=== PATIENT | male | born 1975 | race Caucasian/White ===

== ENCOUNTER 2017-09-26 20:25 | Emergency (ER) | payer SELFPAY ==
[2017-09-26] MEDS ORDERED: Rocephin 1000 MG INJ IM ONE (20:34)
[2017-09-26] MEDS ORDERED: TYLENOL EXTRA STRENGTH 500 MG PO STA (20:34)
[2017-09-26] MEDS ORDERED: MOTRIN 600 MG PO ONE (20:35)
[2017-09-26] MEDS ORDERED: Zofran 4 MG/2 ML VIAL IV ONE (20:47)
[2017-09-26] MEDS ORDERED: Sodium Chloride 0.9% 1000 ML 1,000 ML IV STA ×3 (20:47→22:16)
[2017-09-26] MEDS ORDERED: MORPHINE SULFATE 4 MG INJ IV ONE ×3 (20:47→22:38)
[2017-09-26] MEDS ORDERED: Zofran 4 MG/2 ML VIAL ONE (20:51)
[2017-09-26] MEDS ORDERED: Sodium Chloride 0.9% 1000 ML 1,000 ML ONE ×3 (20:51→22:16)
[2017-09-26] MEDS ORDERED: MORPHINE SULFATE 4 MG INJ ONE ×3 (20:51→22:28)
--- NOTE | 2017-09-26 20:53 | ERPHSYRPT ---
- History of Present Illness Time Seen by Provider: 09/26/17 20:49 Historian: patient, family Exam Limitations: no limitations Patient Subjective Stated Complaint: Upper quadrant abdominal pain bilateral. Denies known injury. Diarrhea Thursday Triage Nursing Assessment: Pt presents to the ED with complaints of upper abdominal pain, bilateral with worsening pain with palpation. Pt states he had diarrhea thursday, no BM yesterday or today. Pt denies other complaints, no distress noted, skin PWD. Physician History: Upper quadrant abdominal pain bilateral. Denies known injury. Diarrhea Thursday complaints of upper abdominal pain, bilateral with worsening pain with palpation. Pt states he had diarrhea since thu, no BM yesterday or today. Pt denies other complaints, Timing/Duration: day(s) (3 days) Activities at Onset: none Quality: cramping Abdominal Pain Onset Location: RUQ, generalized abdomen Pain Radiation: no radiation Severity of Pain-Max: moderate Severity of Pain-Current: moderate Modifying Factors: Improves With: nothing Associated Symptoms: diarrhea, loss of appetite, nausea Previous symptoms: no prior history Allergies/Adverse Reactions: aspirin Allergy (Intermediate, Verified 09/26/17 20:43) Swelling Home Medications: No Reportable Medications [No Reported Medications] 09/26/17 [History] Hx Tetanus, Diphtheria Vaccination/Date Given: Yes Hx Influenza Vaccination/Date Given: No Hx Pneumococcal Vaccination/Date Given: No Immunizations Up to Date: No - Review of Systems Constitutional: No Fever, No Chills Eyes: No Symptoms Ears, Nose, & Throat: No Symptoms Respiratory: No Cough, No Dyspnea Cardiac: No Chest Pain, No Edema, No Syncope Abdominal/Gastrointestinal: Abdominal Pain, Nausea, Diarrhea, No Vomiting Genitourinary Symptoms: No Dysuria Musculoskeletal: No Back Pain, No Neck Pain Skin: No Rash Neurological: No Dizziness, No Focal Weakness, No Sensory Changes Psychological: No Symptoms Endocrine: No Symptoms All Other Systems: Reviewed and Negative - Past Medical History Pertinent Past Medical History: No Neurological History: No Pertinent History ENT History: No Pertinent History Cardiac History: No Pertinent History Respiratory History: No Pertinent History Endocrine Medical History: No Pertinent History Musculoskeletal History: No Pertinent History GI Medical History: No Pertinent History History: No Pertinent History Psycho-Social History: No Pertinent History Male Reproductive Disorders: No Pertinent History - Past Surgical History Past Surgical History: Yes Neuro Surgical History: No Pertinent History Cardiac: No Pertinent History Respiratory: No Pertinent History Gastrointestinal: No Pertinent History Genitourinary: No Pertinent History Musculoskeletal: No Pertinent History Male Surgical History: No Pertinent History Other Surgical History: Hernia repare - Social History Smoking Status: Current every day smoker How long have you smoked: 20 years Exposure to second hand smoke: Yes Patient Lives Alone: No - Nursing Vital Signs Nursing Vital Signs: Initial Vital Signs Temperature 97.6 F 09/26/17 20:34 Pulse Rate 75 09/26/17 20:34 Respiratory Rate 16 09/26/17 20:34 Blood Pressure 111/92 09/26/17 20:34 O2 Sat by Pulse Oximetry 95 09/26/17 20:34 Pain Scale Pain Intensity 7 - Physical Exam General Appearance: no apparent distress, alert Eye Exam: PERRL/EOMI, eyes nml inspection Ears, Nose, Throat Exam: normal ENT inspection, pharynx normal, moist mucous membranes Neck Exam: normal inspection, non-tender, supple, full range of motion Respiratory Exam: normal breath sounds, lungs clear, No respiratory distress Cardiovascular Exam: regular rate/rhythm, normal heart sounds Gastrointestinal/Abdomen Exam: tenderness, distention, guarding, No mass, No ecchymosis, No organomegaly Back Exam: normal inspection, normal range of motion, No CVA tenderness, No vertebral tenderness Extremity Exam: normal inspection, normal range of motion, pelvis stable Neurologic Exam: alert, oriented x 3, cooperative, normal mood/affect, nml cerebellar function, sensation nml, No motor deficits Skin Exam: normal color, warm, dry SpO2: 95 Oxygen Delivery: Room Air - Course Nursing assessment & vital signs reviewed: Yes - CT Exams Abdomen/Pelvis CT Interpretation: Tele-radiologist Report (Large right side morgani hernia) Ordered Tests: Active Orders 24 hr Category Date Time Status Clean Catch Urine Specimen STAT Care 09/26/17 21:34 Active IV Insertion STAT Care 09/26/17 20:46 Active ABDOMEN AND PELVIS W/0 CONTRAS [CT] Stat Exams 09/26/17 20:48 Taken AMYLASE Stat Lab 09/26/17 20:58 Completed CBC W DIFF Stat Lab 09/26/17 20:58 Completed CMP Stat Lab 09/26/17 20:58 Completed LIPASE Stat Lab 09/26/17 20:58 Completed Lactic Acid Stat Lab 09/26/17 21:05 Completed UA W/RFX UR CULTURE Stat Lab 09/26/17 21:58 Completed Medication Summary Generic Name Dose Route Start Last Admin Trade Name Francisco PRN Reason Stop Dose Admin Sodium Chloride 1,000 mls @ 999 mls/hr 09/26/17 21:33 09/26/17 21:38 Sodium Chloride 0.9% 1000 Ml IV 09/26/17 22:33 999 mls/hr .Q1H1M STA Administration Sodium Chloride 1,000 mls @ 999 mls/hr 09/26/17 22:16 09/26/17 22:18 Sodium Chloride 0.9% 1000 Ml IV 09/26/17 23:16 999 mls/hr .Q1H1M STA Administration Discontinued Medications Generic Name Dose Route Start Last Admin Trade Name Francisco PRN Reason Stop Dose Admin Acetaminophen 500 mg 09/26/17 20:34 09/26/17 20:48 Tylenol Extra Strength 500 Mg PO 09/26/17 20:35 Not Given STAT STA Ceftriaxone Sodium 1,000 mg 09/26/17 20:34 09/26/17 20:48 Rocephin 1000 Mg Inj IM 09/26/17 20:35 Not Given STAT ONE Sodium Chloride 1,000 mls @ 999 mls/hr 09/26/17 20:47 09/26/17 20:55 Sodium Chloride 0.9% 1000 Ml IV 09/26/17 21:47 999 mls/hr .Q1H1M STA Administration Sodium Chloride Confirm 09/26/17 20:51 Sodium Chloride 0.9% 1000 Ml Administered 09/26/17 20:52 Dose 1,000 mls @ ud .ROUTE .STK-MED ONE Sodium Chloride Confirm 09/26/17 21:35 Sodium Chloride 0.9% 1000 Ml Administered 09/26/17 21:36 Dose 1,000 mls @ ud .ROUTE .STK-MED ONE Sodium Chloride Confirm 09/26/17 22:16 Sodium Chloride 0.9% 1000 Ml Administered 09/26/17 22:17 Dose 1,000 mls @ ud .ROUTE .STK-MED ONE Ibuprofen 600 mg 09/26/17 20:35 09/26/17 20:47 Motrin 600 Mg PO 09/26/17 20:36 Not Given STAT ONE Morphine Sulfate 4 mg 09/26/17 20:47 09/26/17 20:55 Morphine Sulfate 4 Mg Inj IV 09/26/17 20:48 4 mg STAT ONE Administration Morphine Sulfate Confirm 09/26/17 20:51 Morphine Sulfate 4 Mg Inj Administered 09/26/17 20:52 Dose 4 mg .ROUTE .STK-MED ONE Morphine Sulfate 4 mg 09/26/17 21:33 09/26/17 21:38 Morphine Sulfate 4 Mg Inj IV 09/26/17 21:34 4 mg STAT ONE Administration Morphine Sulfate Confirm 09/26/17 21:35 Morphine Sulfate 4 Mg Inj Administered 09/26/17 21:36 Dose 4 mg .ROUTE .STK-MED ONE Ondansetron HCl 4 mg 09/26/17 20:47 09/26/17 20:55 Zofran 4 Mg/2 Ml Vial IV 09/26/17 20:48 4 mg STAT ONE Administration Ondansetron HCl Confirm 09/26/17 20:51 Zofran 4 Mg/2 Ml Vial Administered 09/26/17 20:52 Dose 4 mg .ROUTE .STK-MED ONE Lab/Rad Data: Laboratory Result Diagrams 09/26/17 20:58 09/26/17 20:58 Laboratory Results 09/26/17 09/26/17 09/26/17 Range/Units 21:58 21:05 20:58 WBC (4.0-10.5) K/mm3 RBC (4.1-5.6) M/mm3 Hgb (12.5-18.0) gm/dl Hct (42-50) % MCV (78-100) fl MCH (26-32) pg MCHC (32-36) g/dl RDW (11.5-14.0) % Plt Count (150-450) K/mm3 MPV (6-9.5) fl Gran % (36.0-66.0) % Eos # (Auto) (0-0.5) Absolute Lymphs (auto) (1.0-4.6) Absolute Monos (auto) (0.0-1.3) Lymphocytes % (24.0-44.0) % Monocytes % (0.0-12.0) % Eosinophils % (0.00-5.0) % Basophils % (0.0-0.4) % Absolute Granulocytes (1.4-6.9) Basophils # (0-0.4) Sodium 139 (137-145) mmol/L Potassium 3.8 (3.5-5.1) mmol/L Chloride 102 (98-107) mmol/L Carbon Dioxide 23 (22-30) mmol/L Anion Gap 17.1 H (5-15) MEQ/L BUN 17 (9-20) mg/dL Creatinine 1.02 (0.66-1.25) mg/dL Estimated GFR > 60 ML/MIN Glucose 120 H (74-106) mg/dL Lactic Acid 1.5 (0.4-2.0) Calcium 9.7 (8.4-10.2) mg/dL Total Bilirubin 0.60 (0.2-1.3) mg/dL AST 22 (17-59) U/L ALT 24 (0-50) U/L Alkaline Phosphatase 69 (38-126) U/L Serum Total Protein 7.3 (6.3-8.2) g/dL Albumin 4.3 (3.5-5.0) g/dL Amylase 54 (30-110) U/L Lipase 46 (23-300) U/L Ur Collection Type VOID Urine Color YELLOW (YELLOW) Urine Appearance CLEAR (CLEAR) Urine pH 5.0 (5-6) Ur Specific [place] 1.015 (1.005-1.025) Urine Protein NEGATIVE (Negative) Urine Ketones NEGATIVE (NEGATIVE) Urine Blood NEGATIVE (0-5) Candido/ul Urine Nitrite NEGATIVE (NEGATIVE) Urine Bilirubin NEGATIVE (NEGATIVE) Urine Urobilinogen NORMAL (0-1) mg/dL Ur Leukocyte Esterase NEGATIVE (NEGATIVE) Urine Culture Reflexed NO (NO) Urine Glucose NEGATIVE (NEGATIVE) mg/dL Specimen Received 09/26/17 2200 09/26/17 Range/Units 20:58 WBC 7.1 (4.0-10.5) K/mm3 RBC 5.22 (4.1-5.6) M/mm3 Hgb 16.5 (12.5-18.0) gm/dl Hct 48.0 (42-50) % MCV 92.0 (78-100) fl MCH 31.6 (26-32) pg MCHC 34.4 (32-36) g/dl RDW 14.4 H (11.5-14.0) % Plt Count 230 (150-450) K/mm3 MPV 9.7 H (6-9.5) fl Gran % 56.0 (36.0-66.0) % Eos # (Auto) 0.30 (0-0.5) Absolute Lymphs (auto) 2.14 (1.0-4.6) Absolute Monos (auto) 0.68 (0.0-1.3) Lymphocytes % 30.1 (24.0-44.0) % Monocytes % 9.6 (0.0-12.0) % Eosinophils % 4.2 (0.00-5.0) % Basophils % 0.1 (0.0-0.4) % Absolute Granulocytes 3.98 (1.4-6.9) Basophils # 0.01 (0-0.4) Sodium (137-145) mmol/L Potassium (3.5-5.1) mmol/L Chloride (98-107) mmol/L Carbon Dioxide (22-30) mmol/L Anion Gap (5-15) MEQ/L BUN (9-20) mg/dL Creatinine (0.66-1.25) mg/dL Estimated GFR ML/MIN Glucose (74-106) mg/dL Lactic Acid (0.4-2.0) Calcium (8.4-10.2) mg/dL Total Bilirubin (0.2-1.3) mg/dL AST (17-59) U/L ALT (0-50) U/L Alkaline Phosphatase (38-126) U/L Serum Total Protein (6.3-8.2) g/dL Albumin (3.5-5.0) g/dL Amylase (30-110) U/L Lipase (23-300) U/L Ur Collection Type Urine Color (YELLOW) Urine Appearance (CLEAR) Urine pH (5-6) Ur Specific [place] (1.005-1.025) Urine Protein (Negative) Urine Ketones (NEGATIVE) Urine Blood (0-5) Candido/ul Urine Nitrite (NEGATIVE) Urine Bilirubin (NEGATIVE) Urine Urobilinogen (0-1) mg/dL Ur Leukocyte Esterase (NEGATIVE) Urine Culture Reflexed (NO) Urine Glucose (NEGATIVE) mg/dL Specimen Received - Progress Progress: unchanged, pain not gone completely Discussed with : Other (Trauma surgeon business analysis consultant at [facility], will see patient in ER) Counseled pt/family regarding: lab results, diagnosis, need for follow-up, rad results - Departure Time of Disposition: 22:23 Departure Disposition: Transfer ([facility] ER) Clinical Impression: Morgagni hernia Condition: Stable Critical Care Time: Yes Critical Care Time(excluding separately billable procedures): 30-74 minutes Referrals: DOCTOR,NO FAMILY [Primary Care Provider] -
[2017-09-26 21:02] LABS: BASOPHIL % 0.1 % (0.0-0.4); Basophil (Absolute #) 0.01 (0-0.4); Eosinophil % 4.2 % (0.00-5.0); Granulocyte Absolute (ANC) 3.98 (1.4-6.9); Hemoglobin 16.5 gm/dl (12.5-18.0); Lymphocyte (Absolute #) 2.14 (1.0-4.6); Lymphocytes % 30.1 % (24.0-44.0); Mean Corpuscular Hemoglobin 31.6 pg (26-32); Mean Corpuscular Hgb Concent. 34.4 g/dl (32-36); Mean Platelet Volume 9.7 fl (6-9.5); Monocyte (Absolute #) 0.68 (0.0-1.3); Monocytes % 9.6 % (0.0-12.0); Platelet Count 230 K/mm3 (150-450); Red Blood Count 5.22 M/mm3 (4.1-5.6); Red Cell Distribution Width 14.4 % (11.5-14.0); White Blood Count 7.1 K/mm3 (4.0-10.5)
[2017-09-26 21:19] LABS: ALBUMIN 4.3 g/dL (3.5-5.0); ALKALINE PHOSPHATASE 69 U/L (38-126); AMYLASE 54 U/L (30-110); ANION GAP 17.1 MEQ/L (5-15); BLOOD UREA NITROGEN 17 mg/dL (9-20); CHLORIDE 102 mmol/L (98-107); Calcium 9.7 mg/dL (8.4-10.2); Carbon Dioxide 23 mmol/L (22-30); Creatinine 1 1.02 mg/dL (0.66-1.25); Glucose 120 mg/dL (74-106); LIPASE 46 U/L (23-300); Potassium 3.8 mmol/L (3.5-5.1); SGOT/AST 22 U/L (17-59); SGPT/ALT 24 U/L (0-50); SODIUM 139 mmol/L (137-145); Total Protein 7.3 g/dL (6.3-8.2)
[2017-09-26 22:02] LABS: Appearance CLEAR (CLEAR); Bilirubin NEGATIVE (NEGATIVE); Blood NEGATIVE Ery/ul (0-5); Glucose NEGATIVE (NEGATIVE); Ketones NEGATIVE (NEGATIVE); Leukocyte Esterase NEGATIVE (NEGATIVE); Nitrite NEGATIVE (NEGATIVE); Protein,Urine Dip NEGATIVE (Negative); Specific Gravity 1.015 (1.005-1.025); Urobilinogen NORMAL mg/dL (0-1)
[2017-09-26 22:56] VITALS: BP 121/78; PULSE 72; O2SAT 92
--- NOTE | 2017-09-27 08:10 | XRAY ---
Indication: Bilateral upper abdomen pain 3 days. Diarrhea. Multiple contiguous axial images obtained through the abdomen and pelvis without contrast as ordered. Comparison: None Lung bases demonstrates a large right anterior diaphragmatic defect with large herniated right hemicolon, small bowel loops, and omental fat favoring Morgagni hernia. Secondary right lower lobe compressive atelectasis. Several right lung base calcified granulomas. Left lung base clear. Heart is not enlarged. Noncontrasted stomach and bowel loops appear nonobstructed. Several small bowel loops however are mildly fluid distended with synchronous fluid leveling, ileus versus enteritis. No free fluid/air. Remaining liver, gallbladder, pancreas, spleen, adrenal glands, kidneys, ureters, and bladder appear unremarkable for noncontrasted exam. Enlarged/nodular prostate gland impresses on the base of the bladder. Minimal aortoiliac calcifications without AAA. Osseous structures intact with mild degenerative changes throughout the spine. Impression: 1. Morgagni hernia with herniated right hemicolon, small bowel, and omental fat with right lower lobe compressive atelectasis. 2. Several fluid-filled small bowel loops with synchronous fluid leveling, ileus versus enteritis. 3. Enlarged/nodular prostate gland. Comment: Preliminary interpretation was made by [facility]. No critical discrepancy. CTDI 23.63
== END 2017-09-26 23:05 | disposition short-term general hospital (02) ==
LOC: ED 20:25
DX: K46.9 Unspecified abdominal hernia without obstruction or gangrene (principal); R19.7 Diarrhea, unspecified
CPT/HCPCS: 36000; 36415; 74176; 80053; 81002; 82150; 83605; 83690; 85025; 96360; 96361; 96374; 96375; 96376; 99285; J2270; J2405

== ENCOUNTER 2018-10-11 17:00 | Emergency (ER) | payer OTHER ==
--- NOTE | 2018-10-11 17:34 | ERPHSYRPT ---
- History of Present Illness Time Seen by Provider: 10/11/18 17:23 Source: patient Exam Limitations: no limitations Patient Subjective Stated Complaint: Pt states "I was riding a horse yesterday and he reared up and my foot got caught in the stirrup and that was the last thing I remember. I thought I would be ok, but now my had feels like someone is squeezing it." Triage Nursing Assessment: Pt alert and oriented x 3, skin pwd. Pt has abrasion noted to left shoulder, pain in left wrist, left eye is black, ambualtes with an upright steady gait, able to speak in clear full sentences. PT in no apparent respiratory distress. Physician History: 43-year-old white male arrives with complaint of pain in his head pain in his neck pain in his left wrist since yesterday. Patient states he fell while on her horse he got his leg caught in a stirrup he can't remember anything else days complaining of pain in his head pain in his neck pain in his left wrist. He has ecchymosis in the left medial periorbital area. He did have some abrasions to his shoulder he denies significant shoulder pain back pain abdominal pain hip pain or leg pain. Past medical history is negative. Past surgical history includes hernia repair, cholecystectomy. Timing/Duration: yesterday Severity: moderate Modifying Factors: Worsens With: eating, immobilization, medication, rest, acetaminophen, ibuprofen, nothing Associated Symptoms: headaches, other (head pain, neck pain, left wrist pain), No nausea, No vomiting, No abdominal pain, No shortness of breath, No heartburn , No diaphoresis, No cough, No chills, No chest pain, No fever, No loss of appetite, No malaise, No rash, No syncope, No seizure, No weakness Allergies/Adverse Reactions: aspirin Allergy (Intermediate, Verified 09/26/17 20:43) Swelling Hx Tetanus, Diphtheria Vaccination/Date Given: Yes Hx Influenza Vaccination/Date Given: No Hx Pneumococcal Vaccination/Date Given: No Immunizations Up to Date: Yes - Review of Systems Constitutional: No Fever, No Chills Eyes: No Symptoms, Other (ecchymosis left medial periorbital area), No Eye Pain , No Eye Redness, No Itchy, No Photophobia, No Tearing, No Vision Changes, No Double Vision Ears, Nose, & Throat: No Symptoms, No Ear Pain, No Ear Discharge, No Hearing Changes, No Tinnitus, No Nose Pain, No Nose Congestion, No Nose Discharge, No Sinus Drainage, No Epistaxis, No Mouth Pain, No Mouth Swelling, No Loose Teeth, No Throat Pain, No Throat Swelling, No Hoarse, No Painful Swallowing, No Snoring , No Stridor Respiratory: No Cough, No Dyspnea Cardiac: No Chest Pain, No Edema, No Syncope Abdominal/Gastrointestinal: No Abdominal Pain, No Nausea, No Vomiting, No Diarrhea Genitourinary Symptoms: No Dysuria Musculoskeletal: Neck Pain, Fall, Injury (fell from horse yesterday), Other ( left wrist pain), No Back Pain, No Deformity Skin: No Symptoms Neurological: Headache, Other (loss of consciousness yesterday), No Dizziness, No Focal Weakness, No Gait Changes, No Irritability, No Lethargy, No Paralysis, No Parasthesia, No Seizure, No Sensory Changes, No Speech Changes, No Tics, No Tremors, No Vertigo Psychological: No Symptoms Endocrine: No Symptoms All Other Systems: Reviewed and Negative - Past Medical History Pertinent Past Medical History: No Neurological History: No Pertinent History ENT History: No Pertinent History Cardiac History: No Pertinent History Respiratory History: No Pertinent History Endocrine Medical History: No Pertinent History Musculoskeletal History: No Pertinent History GI Medical History: No Pertinent History History: No Pertinent History Psycho-Social History: No Pertinent History Male Reproductive Disorders: No Pertinent History - Past Surgical History Past Surgical History: Yes Neuro Surgical History: No Pertinent History Cardiac: No Pertinent History Respiratory: No Pertinent History Gastrointestinal: No Pertinent History Genitourinary: No Pertinent History Musculoskeletal: No Pertinent History Male Surgical History: No Pertinent History Other Surgical History: Hernia repare. sara - Social History Smoking Status: Current every day smoker How long have you smoked: years Exposure to second hand smoke: Yes Drug Use: none Patient Lives Alone: Yes - Nursing Vital Signs Nursing Vital Signs: Initial Vital Signs Temperature 97.6 F 10/11/18 17:08 Pulse Rate 95 H 10/11/18 17:08 Respiratory Rate 20 10/11/18 17:08 Blood Pressure 135/98 10/11/18 17:08 O2 Sat by Pulse Oximetry 100 10/11/18 17:08 Pain Scale Pain Intensity 0 - Physical Exam General Appearance: mild distress, alert Eye Exam: PERRL/EOMI, other (Fundi are unremarkable ecchymosis left medial periorbital area) Ears, Nose, Throat Exam: normal ENT inspection, TMs normal, pharynx normal, moist mucous membranes Neck Exam: normal inspection, supple, No non-tender, No meningismus, No mass, No Brudzinski, No Kernig's, No carotid bruit, No JVD, No limited range of motion , No lymphadenopathy, No subcutaneous emphysema, No midline tenderness, No thyromegaly Respiratory Exam: normal breath sounds, lungs clear, No respiratory distress Cardiovascular Exam: regular rate/rhythm, normal heart sounds, normal peripheral pulses, capillary refill <2 sec Gastrointestinal/Abdomen Exam: soft, normal bowel sounds, No tenderness, No mass Back Exam: normal inspection, normal range of motion, No CVA tenderness, No vertebral tenderness Extremity Exam: normal range of motion, pelvis stable, other (left wrist tenderness with movement and palpation), No normal inspection Neurologic Exam: alert, oriented x 3, cooperative, cardiology physician II-XII nml as tested, normal mood/affect, nml cerebellar function, nml station & gait, sensation nml, No motor deficits Skin Exam: normal color, warm, dry, other (Ecchymosis left medial periorbital area), No rash SpO2 Interpretation: normal (100%) SpO2: 100 - Course Nursing assessment & vital signs reviewed: Yes - CT Exams Cervical Spine CT Interpretation: Discussed w/radiologist (CT C-spine: Impression: No comparisons. Lordotic straightening and minimal C6-7 DDD. Negative fracture or subluxation.) Head CT Interpretation: Discussed w/radiologist (CT head: No comparison. 7 mm right temporal lobe cortical acute parenchymal bleed/contusion without mass effect or fracture. Mild bilateral frontal and ethmoid sinus disease.) Ordered Tests: Active Orders 24 hr Category Date Time Status Door Liner Helper STAT Care 10/11/18 18:47 Active IV Insertion STAT Care 10/11/18 18:45 Active Pulse Oximetry (ED) STAT Care 10/11/18 18:47 Active Splint STAT Care 10/11/18 18:49 Active CERVICAL SPINE WO CONTRAST [CT] Stat Exams 10/11/18 17:51 Taken HEAD WITHOUT CONTRAST [CT] Stat Exams 10/11/18 17:50 Taken WRIST (MIN 3 VIEWS) Stat Exams 10/11/18 17:29 Taken CBC W DIFF Stat Lab 10/11/18 19:00 Completed CMP Stat Lab 10/11/18 19:00 Completed PROTIME WITH INR Stat Lab 10/11/18 19:00 Completed PTT Stat Lab 10/11/18 19:00 Completed Medication Summary Generic Name Dose Route Start Last Admin Trade Name Francisco PRN Reason Stop Dose Admin Sodium Chloride 1,000 mls @ 50 mls/hr 10/11/18 18:45 10/11/18 19:11 Sodium Chloride 0.9% 1000 Ml IV 11/10/18 18:44 50 mls/hr .Q20H FRANK Administration Lab/Rad Data: Laboratory Result Diagrams 10/11/18 19:00 10/11/18 19:00 Laboratory Results 10/11/18 10/11/18 10/11/18 Range/Units 19:00 19:00 19:00 WBC (4.0-10.5) K/mm3 RBC (4.1-5.6) M/mm3 Hgb (12.5-18.0) gm/dl Hct (42-50) % MCV (78-100) fl MCH (26-32) pg MCHC (32-36) g/dl RDW (11.5-14.0) % Plt Count (150-450) K/mm3 MPV (6-9.5) fl Gran % (36.0-66.0) % Eos # (Auto) (0-0.5) Absolute Lymphs (auto) (1.0-4.6) Absolute Monos (auto) (0.0-1.3) Lymphocytes % (24.0-44.0) % Monocytes % (0.0-12.0) % Eosinophils % (0.00-5.0) % Basophils % (0.0-0.4) % Absolute Granulocytes (1.4-6.9) Basophils # (0-0.4) PT 12.5 (8.83-12.87) SECONDS INR 1.07 (0.8-3.0) APTT 28.4 (24.1-36.1) SECONDS Sodium 137 (137-145) mmol/L Potassium 4.2 (3.5-5.1) mmol/L Chloride 105 (98-107) mmol/L Carbon Dioxide 25 (22-30) mmol/L Anion Gap 12.0 (5-15) MEQ/L BUN 20 (9-20) mg/dL Creatinine 1.19 (0.66-1.25) mg/dL Estimated GFR > 60.0 ML/MIN Glucose 104 (74-106) mg/dL Calcium 9.5 (8.4-10.2) mg/dL Total Bilirubin 0.30 (0.2-1.3) mg/dL AST 20 (17-59) U/L ALT 21 (0-50) U/L Alkaline Phosphatase 78 (38-126) U/L Serum Total Protein 7.7 (6.3-8.2) g/dL Albumin 4.2 (3.5-5.0) g/dL 10/11/18 Range/Units 19:00 WBC 8.7 (4.0-10.5) K/mm3 RBC 4.90 (4.1-5.6) M/mm3 Hgb 15.6 (12.5-18.0) gm/dl Hct 46.4 (42-50) % MCV 94.7 (78-100) fl MCH 31.8 (26-32) pg MCHC 33.6 (32-36) g/dl RDW 14.6 H (11.5-14.0) % Plt Count 216 (150-450) K/mm3 MPV 9.8 H (6-9.5) fl Gran % 65.6 (36.0-66.0) % Eos # (Auto) 0.29 (0-0.5) Absolute Lymphs (auto) 1.97 (1.0-4.6) Absolute Monos (auto) 0.72 (0.0-1.3) Lymphocytes % 22.6 L (24.0-44.0) % Monocytes % 8.3 (0.0-12.0) % Eosinophils % 3.3 (0.00-5.0) % Basophils % 0.2 (0.0-0.4) % Absolute Granulocytes 5.71 (1.4-6.9) Basophils # 0.02 (0-0.4) PT (8.83-12.87) SECONDS INR (0.8-3.0) APTT (24.1-36.1) SECONDS Sodium (137-145) mmol/L Potassium (3.5-5.1) mmol/L Chloride (98-107) mmol/L Carbon Dioxide (22-30) mmol/L Anion Gap (5-15) MEQ/L BUN (9-20) mg/dL Creatinine (0.66-1.25) mg/dL Estimated GFR ML/MIN Glucose (74-106) mg/dL Calcium (8.4-10.2) mg/dL Total Bilirubin (0.2-1.3) mg/dL AST (17-59) U/L ALT (0-50) U/L Alkaline Phosphatase (38-126) U/L Serum Total Protein (6.3-8.2) g/dL Albumin (3.5-5.0) g/dL - Progress Progress: improved Progress Note: 10/11/18 18:57 43-year-old white male arrives with complaint of pain in the right side of his head pain in his neck pain in his left hand symptoms since yesterday. 'Patient states he was riding a horse yesterday he got hung up on a stirrup and fell he cannot remember anything else he has the above complaints. He denies any neck pain he did have some abrasions to his shoulder but states he is really not having any shoulder pain. Vitals are stable. He is tender with palpation and movement of the left wrist he has some ecchymosis in the left medial periorbital area. Ears TMs are reilly and intact bilaterally eyes PERRLA EOMI nose is clear throat is clear neck tender posteriorly lungs are clear heart is regular abdomen soft nontender nondistended positive bowel sounds. Extremities tenderness of the left wrist with palpation and movement radial and ulnar pulses are intact 2 over 4. Neuro cranial nerves II through XII are intact DTRs symmetrical 2 over 4 Semaj Coma Scale is 15. Patient's CT of the C-spine no comparison, lordotic straightening and minimal C6 -7 degenerative disc disease negative fracture/subluxation patient's CT had colon no comparisons 7 mm right temporal lobe cortical acute parenchymal bleed/ contusion without mass effect or fracture. Mild bilateral frontal and ethmoid sinus disease. X-ray left wrist no fracture no subluxation Impression accidental fall, neck pain, intercranial bleed, head contusion. Plan I will have nurses go ahead and place IV on the patient 50 mL per hour will give patient [place] for pain. I have discussed case with Dr. Dennis she has excepted the patient to [facility]. CBC CMP PT PTT have been ordered 10/11/18 20:07 I had planned to transfer the patient to [facility] however the patient' s brother apparently flies for [facility]. He requested that the patient be transferred to [facility] and did not want the patient to go to [facility]. I contacted Dr. Yaneth Hernandez at [facility] and discussed patient's case with him. He felt that the patient had fallen approximately 24 hours he had a very small bleed which nothing would be done about it at this time he felt that the patient would have already been released by now had he been admitted yesterday he felt like the patient did not warrant admission and recommended the patient be discharged. Will go ahead and discharge patient I've discussed this with the patient he is happy with this. Will write for [place] for pain for this patient he is return home rest he is avoid aspirin products (he is allergic to them anyway) He is to follow-up with his family doctor. - Departure Departure Disposition: Home Clinical Impression: Animal-rider injured by fall from or being thrown from horse in noncollision accident, subsequent encounter, Intracranial bleed, Neck pain Accidental fall Qualifiers: Encounter type: initial encounter Qualified Code(s): W19.XXXA - Unspecified fall, initial encounter Head contusion Qualifiers: Encounter type: initial encounter Contusion of head detail: unspecified part of head Qualified Code(s): S00.93XA - Contusion of unspecified part of head, initial encounter Sprain of left wrist Qualifiers: Encounter type: initial encounter Qualified Code(s): S63.502A - Unspecified sprain of left wrist, initial encounter Condition: Fair Critical Care Time: No Referrals: DOCTOR,NO FAMILY [Primary Care Provider] - Instructions: Closed Head Injury (DC) Additional Instructions: Return home Cold packs to contused area 24-48 hours. [place] as prescribed. Follow-up with your family doctor. Ice and elevate left wrist 24-48 hours. Return for acute distress or for severe symptoms. Prescriptions: Hydrocodone/APAP 5-325 Tab^^^ [[place] 5-325 Tablet^^^] 1 tab PO Q6HPRN PRN #10 tablet MDD 6 PRN Reason: Pain
[2018-10-11] MEDS ORDERED: Sodium Chloride 0.9% 1000 ML 1,000 ML IV SCH (18:45)
[2018-10-11] MEDS ORDERED: Sodium Chloride 0.9% 1000 ML 1,000 ML ONE (19:06)
[2018-10-11 19:13] LABS: BASOPHIL % 0.2 % (0.0-0.4); Basophil (Absolute #) 0.02 (0-0.4); Eosinophil % 3.3 % (0.00-5.0); Eosinophil (Absolute #) 0.29 (0-0.5); Granulocyte Absolute (ANC) 5.71 (1.4-6.9); Granulocytes % 65.6 % (36.0-66.0); Hematocrit 46.4 % (42-50); Hemoglobin 15.6 gm/dl (12.5-18.0); Lymphocyte (Absolute #) 1.97 (1.0-4.6); Lymphocytes % 22.6 % (24.0-44.0); Mean Cell Volume 94.7 fl (78-100); Mean Corpuscular Hemoglobin 31.8 pg (26-32); Mean Corpuscular Hgb Concent. 33.6 g/dl (32-36); Mean Platelet Volume 9.8 fl (6-9.5); Monocyte (Absolute #) 0.72 (0.0-1.3); Monocytes % 8.3 % (0.0-12.0); Platelet Count 216 K/mm3 (150-450); Red Cell Distribution Width 14.6 % (11.5-14.0); White Blood Count 8.7 K/mm3 (4.0-10.5)
[2018-10-11 19:20] LABS: INR 1.07 (0.8-3.0); PROTIME 12.5 SECONDS (8.83-12.87)
[2018-10-11 19:25] LABS: ALBUMIN 4.2 g/dL (3.5-5.0); ALKALINE PHOSPHATASE 78 U/L (38-126); BLOOD UREA NITROGEN 20 mg/dL (9-20); CHLORIDE 105 mmol/L (98-107); Calcium 9.5 mg/dL (8.4-10.2); Carbon Dioxide 25 mmol/L (22-30); Creatinine 1 1.19 mg/dL (0.66-1.25); Glucose 104 mg/dL (74-106); Potassium 4.2 mmol/L (3.5-5.1); SGOT/AST 20 U/L (17-59); SGPT/ALT 21 U/L (0-50); SODIUM 137 mmol/L (137-145); Total Protein 7.7 g/dL (6.3-8.2)
[2018-10-11] MEDS ORDERED: NORCO 5/325 MG PO ONE (20:15)
[2018-10-11] MEDS ORDERED: NORCO 5/325 MG ONE (20:29)
[2018-10-11 21:04] VITALS: BP 125/92; PULSE 76; O2SAT 97
--- NOTE | 2018-10-12 08:37 | XRAY ---
Indication: Head and neck pain following fall off horse one day earlier. Multiple contiguous axial images obtained through the head without contrast. Comparison: None Right temporal lobe demonstrates a small 7 mm cortical acute parenchymal hemorrhage/contusion without mass effect. No other acute hemorrhage, abnormal extra-axial fluid collection, or mass effect. Fourth ventricle is midline without hydrocephalus. Palmer-white matter differentiation is preserved. Bony calvarium intact. Mild mucosal thickening of both ethmoid and both frontal sinuses. Mastoid air cells are clear. Impression: 1. Tiny cortical acute parenchymal hemorrhage/contusion involving the right temporal lobe without mass effect or fracture. 2. Incidental paranasal sinus disease. CT DI 50.87
--- NOTE | 2018-10-12 08:39 | XRAY ---
Indication: Head and neck pain following fall off horse one day earlier. Multiple contiguous axial images obtained through the cervical spine. Sagittal and coronal reformatted images obtained. Comparison: None Axial images negative for acute fracture, suspicious bony lesions, or spinal canal stenosis. Minimal C6-C7 degenerative endplate spurring. Sagittal and coronal reformatted images demonstrates lordotic straining, positional versus paraspinal spasm. Minimal C6-C7 disc space narrowing. No acute compression fracture, subluxation, or jumped facets. Normal appearing craniocervical junction. Visualized noncontrasted soft tissues including lung apices unremarkable. Impression: 1. Negative for acute fracture/subluxation. Cervical lordotic straightening, positional versus paraspinal spasm. 2. Incidental C6-C7 degenerative changes. CT DI 58.30
--- NOTE | 2018-10-12 09:22 | XRAY ---
Indication: Pain following fall off horse. Comparison: None 3 views of the left wrist obtained. No bony, articular, or soft tissue abnormalities.
== END 2018-10-11 21:07 | disposition home or self-care (01) ==
LOC: ED 17:00
DX: S00.93XA Contusion of unspecified part of head, initial encounter (principal); S63.502A Unspecified sprain of left wrist, initial encounter; R51 Headache; M54.2 Cervicalgia; M25.532 Pain in left wrist; S40.212A Abrasion of left shoulder, initial encounter; S00.12XA Contusion of left eyelid and periocular area, initial encounter; R58 Hemorrhage, not elsewhere classified; V80.919A Animal-rider injured in unspecified transport accident, initial encounter
CPT/HCPCS: 36000; 36415; 70450; 72125; 73110; 80053; 85025; 85610; 85730; 93041; 96360; 96361; 99285; L3908; A9270-GY

== ENCOUNTER 2022-11-13 12:05 | Emergency (ER) | payer MEDICAID, OTHER ==
[2022-11-13 13:11] VITALS: PULSE 91
[2022-11-13 13:12] LABS: Absolute Neutrophil Ct (ANC) 5.29 x10^3/uL (1.4-6.9); BASOPHIL % 0.4 % (0.0-0.4); Basophil (Absolute #) 0.03 x10^3/uL (0-0.4); Eosinophil % 1.9 % (0.00-5.0); Eosinophil (Absolute #) 0.13 x10^3/uL (0-0.5); Hematocrit 47.5 % (42-50); Hemoglobin 15.8 g/dL (12.5-18.0); IMMATURE GRAN # 0.02 x10^3u/L (0.00-0.03); IMMATURE GRAN % 0.3 % (0.00-0.4); Lymphocyte (Absolute #) 1.02 x10^3/uL (1.0-4.6); Mean Cell Volume 95.4 fL (78-100); Mean Corpuscular Hemoglobin 31.7 pg (26-32); Mean Corpuscular Hgb Concent. 33.3 g/dL (32-36); Mean Platelet Volume 9.7 fL (7.5-11.0); Monocytes % 4.4 % (0.0-12.0); Platelet Count 152 x10^3/uL (150-450); Red Blood Count 4.98 x10^6/uL (4.1-5.6); Red Cell Distribution Width 13.9 % (11.5-14.0); White Blood Count 6.8 x10^3/uL (4.0-10.5)
[2022-11-13 13:23] LABS: ALBUMIN 4.4 g/dL (3.5-5.0); BILIRUBIN,TOTAL 0.7 mg/dL (0.2-1.3); Calcium 8.7 mg/dL (8.4-10.2); Creatinine 1 1.36 mg/dL (0.66-1.25); Potassium 3.9 mmol/L (3.5-5.1); Total Protein 8.3 g/dL (6.3-8.2)
--- NOTE | 2022-11-13 13:48 | XRAY ---
Indication: Pain and swelling. Two-dimensional sonogram and color Doppler imaging of the major venous vessels of the left leg performed. Comparison: None No thrombus seen in the examined deep venous vessels of the left leg including greater saphenous vein. Veins demonstrate normal compressibility. Venous waveforms are normal with and without augmentation. Impression: Left leg negative for DVT.
[2022-11-13 14:13] VITALS: O2SAT 95
[2022-11-13] MEDS ORDERED: CLINDAMYCIN-D5W 900 MG/50 ML*** 900 MG/50 ML BAG IV STA (14:25)
[2022-11-13] MEDS ORDERED: CLINDAMYCIN-D5W 900 MG/50 ML*** 900 MG/50 ML BAG IV ONE (14:43)
--- NOTE | 2022-11-13 15:24 | ERPHSYRPT ---
- History of Present Illness Time Seen by Provider: 11/13/22 12:25 Source: patient Exam Limitations: no limitations Patient Subjective Stated Complaint: " My leg has been hurting, red, and swollen since Thursday. It's getting worse and not feeling any better". Triage Nursing Assessment: Pt presents to ER with complaints of tenderness, redness, and swelling to left lower leg and left groin. Pt states appeared about 2 days ago. Appears infected. Pt is alert and oriented x 3. Respirations are unlabored. Pt ambulates with shuffle gait. Pt denies any fever, nausea, vomiting, or diarrhea. Pt has no further complaints other than pain in leg. Rates pain 8/10 scale. Physician History: 47 years old male presented to ER with chief complaint of left lower leg swelling and pain for the last 2 to 3 days with progressive worsening and shooting to the groin area with some redness in the groin area as well since yesterday. Moderate intensity sharp burning pain with no fever or chills. Denies any fall or trauma or insect bite. Timing/Duration: day(s) (3), constant, gradual onset, worse Quality: burning, painful Severity: moderate Location: extremities Possible Causes: no cause identified Associated Symptoms: rash, swelling/mass/lumps Allergies/Adverse Reactions: aspirin Allergy (Intermediate, Verified 11/13/22 12:35) Swelling Hx Tetanus, Diphtheria Vaccination/Date Given: Yes Hx Influenza Vaccination/Date Given: No Hx Pneumococcal Vaccination/Date Given: No Immunizations Up to Date: No Travel Risk - International Travel Have you traveled outside of the country in past 3 weeks: No - Coronavirus Screening Are you exhibiting any of the following symptoms?: No Close contact with a COVID-19 positive Pt in past 14-21 Days: No - Vaccine Status Have you recieved a Covid-19 vaccination: No - Review of Systems Constitutional: No Symptoms Ears, Nose, & Throat: No Symptoms Respiratory: No Symptoms Cardiac: No Symptoms Abdominal/Gastrointestinal: No Symptoms Musculoskeletal: No Symptoms Skin: Rash Neurological: No Symptoms Endocrine: No Symptoms Hematologic/Lymphatic: No Symptoms - Past Medical History Pertinent Past Medical History: No Neurological History: No Pertinent History ENT History: No Pertinent History Cardiac History: No Pertinent History Respiratory History: No Pertinent History Endocrine Medical History: No Pertinent History Musculoskeletal History: No Pertinent History GI Medical History: No Pertinent History History: No Pertinent History Psycho-Social History: No Pertinent History Male Reproductive Disorders: No Pertinent History - Past Surgical History Past Surgical History: Yes Neuro Surgical History: No Pertinent History Cardiac: No Pertinent History Respiratory: No Pertinent History Gastrointestinal: No Pertinent History Genitourinary: No Pertinent History Musculoskeletal: No Pertinent History Male Surgical History: No Pertinent History Other Surgical History: Hernia repare. sara - Social History Smoking Status: Current every day smoker How long have you smoked: years Exposure to second hand smoke: Yes Drug Use: none Patient Lives Alone: No - Nursing Vital Signs Nursing Vital Signs: Initial Vital Signs Blood Pressure 153/101 11/13/22 12:28 O2 Sat by Pulse Oximetry 94 L 11/13/22 12:28 Pain Scale Pain Intensity 6 - Physical Exam General Appearance: no apparent distress, alert Eye Exam: PERRL/EOMI Ears, Nose, Throat Exam: normal ENT inspection Neck Exam: normal inspection, full range of motion Respiratory Exam: normal breath sounds, lungs clear Cardiovascular Exam: regular rate/rhythm, normal heart sounds Gastrointestinal/Abdomen Exam: soft, normal bowel sounds, No tenderness Back Exam: normal inspection, normal range of motion Extremity Exam: inflammation, swelling (Left lower medial leg 6 x 7 cm area of erythema with mild swelling, warm, minimal tenderness to touch with streaking going towards knee and some erythema in the left groin. No calf tenderness.), tenderness, No calf tenderness Neurologic Exam: alert, oriented x 3, cooperative Skin Exam: normal color Lymphatic Exam: inguinal node tender (L) SpO2 Interpretation: normal SpO2: 95 O2 Delivery: Room Air Ordered Tests: Active Orders 24 hr Category Date Time Status VENOUS UNILAT/LIMITED EXTREMIT [US] Stat Exams 11/13/22 13:00 Completed BLOOD CULTURE Stat Lab 11/13/22 13:02 Received CBC W DIFF Stat Lab 11/13/22 12:45 Completed CMP Stat Lab 11/13/22 12:56 Completed Lactic Acid Stat Lab 11/13/22 12:55 Completed PROCALCITONIN Stat Lab 11/13/22 12:56 Completed UA W/RFX UR CULTURE Stat Lab 11/13/22 14:50 Ordered Medication Summary Discontinued Medications Generic Name Dose Route Start Last Admin Trade Name Freq PRN Reason Stop Dose Admin Clindamycin HCl/Dextrose 900 mg in 50 mls @ 100 mls/hr 11/13/22 14:25 11/13/22 14:45 Clindamycin-D5w 900 Mg/50 Ml IV 11/13/22 14:54 100 ml/hr STAT STA 100 mls/hr Administration Clindamycin HCl/Dextrose Confirm 11/13/22 14:43 Clindamycin-D5w 900 Mg/50 Ml Administered 11/13/22 14:44 Dose 900 mg in 50 mls @ ud IV .K-MED ONE Lab/Rad Data: Laboratory Result Diagrams 11/13/22 12:45 11/13/22 12:56 Laboratory Results 11/13/22 11/13/22 11/13/22 Range/Units 12:56 12:56 12:55 WBC (4.0-10.5) x10^3/uL RBC (4.1-5.6) x10^6/uL Hgb (12.5-18.0) g/dL Hct (42-50) % MCV (78-100) fL MCH (26-32) pg MCHC (32-36) g/dL RDW (11.5-14.0) % Plt Count (150-450) x10^3/uL MPV (7.5-11.0) fL Gran % (36.0-66.0) % Immature Gran % (Auto) (0.00-0.4) % Nucleat RBC Rel Count (0.00-0.1) % Eos # (Auto) (0-0.5) x10^3/uL Immature Gran # (Auto) (0.00-0.03) x10^3u/L Absolute Lymphs (auto) (1.0-4.6) x10^3/uL Absolute Monos (auto) (0.0-1.3) x10^3/uL Absolute Nucleated RBC (0.00-0.01) x10^3u/L Lymphocytes % (24.0-44.0) % Monocytes % (0.0-12.0) % Eosinophils % (0.00-5.0) % Basophils % (0.0-0.4) % Absolute Granulocytes (1.4-6.9) x10^3/uL Basophils # (0-0.4) x10^3/uL Sodium 136 L (137-145) mmol/L Potassium 3.9 (3.5-5.1) mmol/L Chloride 102 (98-107) mmol/L Carbon Dioxide 22 (22-30) mmol/L Anion Gap 15.0 (5-15) MEQ/L BUN 18 (9-20) mg/dL Creatinine 1.36 H (0.66-1.25) mg/dL Estimated GFR 60.0 ML/MIN Glucose 108 H (74-106) mg/dL Lactic Acid 0.9 (0.4-2.0) Calcium 8.7 (8.4-10.2) mg/dL Total Bilirubin 0.70 (0.2-1.3) mg/dL AST 39 (17-59) U/L ALT 31 (0-50) U/L Alkaline Phosphatase 57 (38-126) U/L Serum Total Protein 8.3 H (6.3-8.2) g/dL Albumin 4.4 (3.5-5.0) g/dL Procalcitonin 0.861 H (0.030-0.080) ng/mL 11/13/22 Range/Units 12:45 WBC 6.8 (4.0-10.5) x10^3/uL RBC 4.98 (4.1-5.6) x10^6/uL Hgb 15.8 (12.5-18.0) g/dL Hct 47.5 (42-50) % MCV 95.4 (78-100) fL MCH 31.7 (26-32) pg MCHC 33.3 (32-36) g/dL RDW 13.9 (11.5-14.0) % Plt Count 152 (150-450) x10^3/uL MPV 9.7 (7.5-11.0) fL Gran % 78.0 H (36.0-66.0) % Immature Gran % (Auto) 0.3 (0.00-0.4) % Nucleat RBC Rel Count 0.0 (0.00-0.1) % Eos # (Auto) 0.13 (0-0.5) x10^3/uL Immature Gran # (Auto) 0.02 (0.00-0.03) x10^3u/L Absolute Lymphs (auto) 1.02 (1.0-4.6) x10^3/uL Absolute Monos (auto) 0.30 (0.0-1.3) x10^3/uL Absolute Nucleated RBC 0.00 (0.00-0.01) x10^3u/L Lymphocytes % 15.0 L (24.0-44.0) % Monocytes % 4.4 (0.0-12.0) % Eosinophils % 1.9 (0.00-5.0) % Basophils % 0.4 (0.0-0.4) % Absolute Granulocytes 5.29 (1.4-6.9) x10^3/uL Basophils # 0.03 (0-0.4) x10^3/uL Sodium (137-145) mmol/L Potassium (3.5-5.1) mmol/L Chloride (98-107) mmol/L Carbon Dioxide (22-30) mmol/L Anion Gap (5-15) MEQ/L BUN (9-20) mg/dL Creatinine (0.66-1.25) mg/dL Estimated GFR ML/MIN Glucose (74-106) mg/dL Lactic Acid (0.4-2.0) Calcium (8.4-10.2) mg/dL Total Bilirubin (0.2-1.3) mg/dL AST (17-59) U/L ALT (0-50) U/L Alkaline Phosphatase (38-126) U/L Serum Total Protein (6.3-8.2) g/dL Albumin (3.5-5.0) g/dL Procalcitonin (0.030-0.080) ng/mL - Progress Progress: unchanged Progress Note: 11/13/22 15:25 47 years old is evaluated for left leg and calf area swelling/erythema gradually worsening for the last few days with pain on movements without fever or chills. Patient has streaking, obtain ultrasound which is negative for DVT. Has normal white count but has elevated procalcitonin 0.8, given a dose of IV clindamycin. I believe patient has cellulitis, will continue with clindamycin to go home and outpatient follow-up recommended. Recommended Tylenol ibuprofen for symptomatic relief. Patient is offered pain medication which she declined and here. Discussed signs symptoms of worsening needing return to ER which she seems understanding. Stable for discharge. No involvement of any joints. Counseled pt/family regarding: lab results, diagnosis, need for follow-up, rad results Medical Desision Making - Diagnostic Testing Diagnostic test were ordered, analyzed, and reviewed by me: Yes Radiological Interpretation: Reviewed by me - Risk of complications The pt has a mod risk of morbidity or mortality based on: Need for prescription drug management - Departure Departure Disposition: Home Clinical Impression: Lower extremity cellulitis Condition: Stable Critical Care Time: No Referrals: DOCTOR,NO FAMILY [Primary Care Provider] - Follow up/PCP as directed JESUS ALBERTO URBINA MD [ACTIVE STAFF] - Follow up/PCP as directed (1-2 days for reevaluation) Instructions: Cellulitis (Skin Infection), Adult (DC) Additional Instructions: Take Tylenol/ibuprofen as needed. Follow-up with primary care for reevaluation. Return to ER for worsening pain, swelling, redness, fever chills etc. Prescriptions: Ibuprofen 600 mg PO Q6HPRN PRN 10 Days #20 tablet PRN Reason: Pain clindamycin HCL [Clindamycin HCl] 300 mg PO QID 7 Days #28 cap
[2022-11-13 15:25] VITALS: BP 121/90
[2022-11-13 15:36] LABS: Appearance Clear (Clear); Bilirubin Small (Negative); Blood Negative (Negative); Epithelial Cells Few /HPF (None Seen); Glucose, Urine Negative (Negative); Ketones Trace (Negative); Leukocyte Esterase Negative (Negative); Nitrite Negative (Negative); Ph 5.5 (4.6-8.0); Protein,Urine Dip 100 (Negative); RBC 0-2 /HPF (0-5); Specific Gravity >=1.030 (1.005-1.030); WBC 0-2 /HPF (0-5)
[2022-11-13 15:37] LABS: ADD URINE CULTURE? NO (NO); Bacteria Few /HPF (None Seen); Hyaline Casts 0-2 /LPF (0-2)
== END 2022-11-13 15:53 | disposition home or self-care (01) ==
LOC: ED 12:05
DX: L03.116 Cellulitis of left lower limb (principal); Z72.0 Tobacco use; Z20.828 Contact with and (suspected) exposure to other viral communicable diseases
CPT/HCPCS: 36000; 36415; 80053; 81001; 83605; 84145; 85025; 87040; 93971; 99284